=== PATIENT | male | born 2000 | race Two or more races ===

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

== ENCOUNTER 2021-01-06 19:50 | Emergency (ER) | payer OTHER ==
[~2021-01-06] VITALS: Ht 172.7 cm; Wt 72.6 kg
[2021-01-06] MEDS ORDERED: BENADRYL ALLERG25 MG PO (22:02)
== END 2021-01-06 23:07 | disposition home or self-care (01) ==
LOC: ER 19:50 → EMR PED 19:50
DX: T63.691A Toxic effect of contact with other venomous marine animals, accidental (unintentional), initial encounter (principal); F06.4 Anxiety disorder due to known physiological condition; Y92.832 Beach as the place of occurrence of the external cause

== ENCOUNTER 2021-01-21 05:03 | Emergency (ER) | payer OTHER ==
[~2021-01-21] VITALS: Ht 172.7 cm; Wt 77.1 kg
[~2021-01-21 05:03] MED LIST changes: +BENADRYL ALLERG25 MG PO
[2021-01-21] MEDS ORDERED: MUCINEX D ER 11 EACH PO (08:13)
[2021-01-21] MEDS ORDERED: ZITHROMAX TRI-500 MG PO (08:13)
[2021-01-21] MEDS ORDERED: PEPCID AC20 MG PO (08:13)
== END 2021-01-21 08:46 | disposition home or self-care (01) ==
LOC: EMR PED 05:03 → ER 05:03 → EMR PED 05:34 → ER 05:34 → EMR PED 08:46
DX: R07.0 Pain in throat (principal)

== ENCOUNTER 2021-10-08 08:51 | Emergency (ER) | payer OTHER ==
[~2021-10-08] VITALS: Ht 172.7 cm; Wt 77.1 kg
[~2021-10-08 08:51] MED LIST changes: +MUCINEX D ER 11 EACH PO; +PEPCID AC20 MG PO
== END 2021-10-08 10:55 | disposition home or self-care (01) ==
LOC: ER 08:51 → EMR PED 08:54
DX: U07.1 COVID-19 (principal); J06.9 Acute upper respiratory infection, unspecified

== ENCOUNTER 2022-03-10 18:12 | Emergency (ER) | payer OTHER ==
[~2022-03-10] VITALS: Ht 172.7 cm; Wt 72.6 kg
== END 2022-03-10 19:19 | disposition home or self-care (01) ==
LOC: ER 18:12 → EMR PED 18:14
DX: D17.39 Benign lipomatous neoplasm of skin and subcutaneous tissue of other sites (principal); Z91.013 Allergy to seafood

== ENCOUNTER 2025-06-20 17:46 | Emergency (ER) | payer OTHER ==
[~2025-06-20] VITALS: Ht 170.2 cm; Wt 74.8 kg
[2025-06-20] MEDS ORDERED: METRONIDAZOLE/SODIUM CHLORIDE 500 MG/100 ML PIGGYBACK IV ONE (19:30)
[2025-06-20] MEDS ORDERED: FAMOTIDINE/PF 20 MG/2 ML VIAL IV ONE (19:30)
[2025-06-20] MEDS ORDERED: DEXAMETHASONE 4 MG TABLET PO ONE (19:30)
[2025-06-20] MEDS ORDERED: KETOROLAC TROMETHAMINE 30 MG VIAL IV ONE (19:30)
[2025-06-20] MEDS ORDERED: ORPHENADRINE CITRATE 30 MG/ML AMPUL IV ONE (19:30)
[2025-06-20] MEDS ORDERED: CEFTRIAXONE SODIUM 1,000 MG VIAL IV ONE (19:30)
[2025-06-20] MEDS ORDERED: TETANUS & DIPHTHERIA TOX,ADULT 0.5 ML VIAL IM ONE (19:30)
[2025-06-20] MEDS ORDERED: DEXAMETHASONE SODIUM PHOSPHATE 4 MG/ML VIAL IV ONE (23:00)
[2025-06-20 23:09] LABS: BASO % 0.3 % (0.1-1.2); EOS # 0.17 (0.04-0.54); EOS % 1.9 % (0.7-7.0); LYMPH # 2.23 (1.18-3.74); LYMPH % 25.0 % (19.3-53.1); MEAN PLATELET VOLUME 9.70 fl (9.4-12.4); MONO # 0.62 (0.24-0.82); MONO % 7.0 % (4.7-12.5); NEUT # 5.84 (1.56-6.13); NEUT % 65.6 % (34.0-71.1); RED CELL DISTRIBUTION WIDTH 12.0 % (11.6-14.4)
[2025-06-20] MEDS ORDERED: KETO10TA2 PO (23:28)
[2025-06-20] MEDS ORDERED: AMOX-CLAV 875-1 EACH PO (23:28)
[2025-06-20] MEDS ORDERED: NORFLEX100MG PO (23:28)
[2025-06-20] MEDS ORDERED: PEPCID AC20 MG PO (23:28)
[2025-06-20 23:29] LABS: BUN CREA RATIO 16 (7.0-25.0); CREATININE SERUM 0.96 mg/dL (0.70-1.30); GFR 97.06; GLUCOSE FASTING 117 mg/dL (65-100); OSMOLALITY SERUM 285 MOSM/KG (275-295)
== END 2025-06-21 04:29 | disposition home or self-care (01) ==
LOC: ER 17:46
PROVIDERS: Student in an Organized Health Care Education/Training Program
DX: S61.451A Open bite of right hand, initial encounter (principal); W55.01XA Bitten by cat, initial encounter; Y93.89 Activity, other specified; Y92.89 Other specified places as the place of occurrence of the external cause; Y99.9 Unspecified external cause status; Z91.013 Allergy to seafood